=== PATIENT | male | born 1965 | race Two or more races ===

== ENCOUNTER 2020-05-27 13:09 | Emergency (ER) | payer SELFPAY ==
[~2020-05-27] VITALS: Ht 175.3 cm; Wt 82.0 kg
[2020-05-27 13:58] VITALS: BP 161/111
[2020-05-27 14:26] LABS: BASOPHILS % 0.6 % (0.0-2.0); EOSINOPHILS % 0.4 % (0.0-5.0); HEMATOCRIT. 44.9 % (42.0-52.0); HEMOGLOBIN. 14.5 g/dL (14.0-18.0); LYMPHOCYTES % 34.8 % (20.0-50.0); MEAN CORPUSCULAR HEMOGLOBIN 28.8 pg (28.0-32.0); MEAN CORPUSCULAR VOLUME 89.2 fL (80.0-94.0); MONOCYTES % 8.1 % (2.0-8.0); NEUTROPHILS % 56.1 % (40.0-76.0); PLATELET 157 x1000/uL (130-400); RED BLOOD CELL COUNT 5.04 mill/uL (4.7-6.1); RED CELL DISTRIBUTION WIDTH 14.7 % (11.6-14.6)
[2020-05-27 14:29] LABS: CLARITY URINE CLEAR (CLEAR); COLOR URINE YELLOW (YELLOW); KETONES URINE NEGATIVE (NEGATIVE); LEUKOCYTE ESTERASE URINE NEGATIVE (NEGATIVE); NITRITE URINE NEGATIVE (NEGATIVE); OCCULT BLOOD URINE NEGATIVE (NEGATIVE); PH URINE 6.5 (4.5-8.0); PROTEIN URINE 1+ (NEGATIVE); SPECIFIC GRAVITY URINE 1.004 (1.005-1.030); UROBILINOGEN URINE 0.2 E.U./dL (0.2-1.0)
[2020-05-27 14:33] LABS: CHLORIDE 104 mEq/L (98-107)
[2020-05-27 14:35] LABS: PROTHROMBIN TIME 10.6 sec (9.6-11.0)
[2020-05-27 14:44] LABS: CREATINE KINASE 198 IU/L (39-308)
[2020-05-27 14:51] LABS: *BARBITURATES SCREEN URINE NEGATIVE (NEGATIVE); *BENZODIAZEPINES SCREEN URINE NEGATIVE (NEGATIVE); *COCAINE SCREEN URINE NEGATIVE (NEGATIVE); METHADONE URINE SCREEN NEGATIVE (NEGATIVE); OPIATES URINE SCREEN NEGATIVE (NEGATIVE)
[2020-05-27 14:52] LABS: *AMPHETAMINES SCREEN URINE NEGATIVE (NEGATIVE); CANNABINOID URINE SCREEN PRESUMTIVE POSITIVE (NEGATIVE); PHENCYCLIDINE URINE SCREEN NEGATIVE (NEGATIVE)
== END 2020-05-27 14:47 | disposition left against medical advice (07) ==
LOC: ER 13:09
DX: R41.82 Altered mental status, unspecified (principal); R45.1 Restlessness and agitation; F20.9 Schizophrenia, unspecified; G89.21 Chronic pain due to trauma; R10.9 Unspecified abdominal pain; M79.673 Pain in unspecified foot; Z59.0 Homelessness
CPT/HCPCS: 36415; 80053; 80305; 81003; 82550; 85025; 93005; 99284